=== PATIENT | female | born 1980 | race African-American/Black ===

== ENCOUNTER 2019-11-19 09:05 | Emergency (ER) | payer OTHER ==
[~2019-11-19] VITALS: Ht 175.3 cm; Wt 99.8 kg
[~2019-11-19 09:05] MED LIST: HYDROCODONE-AP1 EAC6 PO
[2019-11-19 09:45] LABS: INFLUENZA A ANTIGEN Positive (Negative); INFLUENZA B ANTIGEN Negative (Negative)
[2019-11-19] MEDS ORDERED: TAMIFLU75 MG PO (09:48)
[2019-11-19 10:02] VITALS: BP 143/94
== END 2019-11-19 10:03 | disposition home or self-care (01) ==
LOC: M.ERS 09:05
PROVIDERS: Emergency Medicine Emergency Medical Services
DX: J11.1 Influenza due to unidentified influenza virus with other respiratory manifestations (principal); F17.210 Nicotine dependence, cigarettes, uncomplicated